=== PATIENT | female | born 1980 | race Caucasian/White ===

== ENCOUNTER 2016-08-20 12:41 | Day surgery (SDC) | payer OTHER ==
[~2016-08-20] VITALS: Ht 157.5 cm; Wt 52.6 kg
[2016-08-20] MEDS ORDERED: no meds (14:51)
[2016-08-20 14:59] VITALS: PULSE 78; Ht 157.5 cm; Wt 52.6 kg
[2016-08-20] MEDS ORDERED: MIDAZOLAM 1 MG/ML 2 ML INJ ONE ×2 (15:50)
[2016-08-20] MEDS ORDERED: FENTAnyl 50 MCG/ML VIAL ONE (15:50)
[2016-08-20] MEDS ORDERED: MEPERIDINE 50 MG INJ ONE (15:51)
--- NOTE | 2016-08-20 16:52 | GILP ---
DATE OF PROCEDURE: 08/20/2016 PROCEDURE: Esophagogastroduodenoscopy biopsy. PREOPERATIVE DIAGNOSIS: Gastroesophageal reflux symptoms with abdominal pain, abnormal CT report. POSTOPERATIVE DIAGNOSES: Distal esophagitis. DESCRIPTION OF PROCEDURE: The patient was put in left lateral decubitus after obtaining informed co nsent, the patient was sedated, monitored on oximetry, EKG, blood pressure. She was given 3 mg IV V ersed and 25 mcg of fentanyl. Very carefully advanced an Olympus video upper endoscope into the esophagus, stomach and duodenum. A tongue-like shaped mucosal change noted at the distal esophagus at the GE junction and one linear erosion noted. This was photographed and biopsy was done later. No hiatus hernia noted in the stom ach essentially normal, but random biopsy done. Fundus, body and antrum thoroughly examined. The p ylorus easily entered and duodenal bulb and first part and second part of the duodenum normal. Scop e was withdrawn after biopsies. The patient had no complication. Plan will be to await for biopsy report and follow up in 2 weeks. Dictated By: BOOKER HARDEN Conf#: [id number] DID#: [id number] CC: BOOKER HO M.D.;*EndCC*
--- NOTE | 2016-08-20 22:07 | GILP ---
DATE OF PROCEDURE: PREOPERATIVE DIAGNOSIS: Abnormal CT, abdominal pain, rule out any inflammatory bowel disease. PROCEDURE DONE: Colonoscopy and ileoscopy. POSTOPERATIVE DIAGNOSIS: Normal terminal ileum, normal colon. DESCRIPTION OF PROCEDURE: Patient was put in left lateral decubitus after obtaining informed consen t. After EGD, further sedation was done with 1 mg of Versed and 25 mcg of fentanyl, 50 mg of Demero l. Very carefully advanced a pediatric Olympus video colonoscope all the way to terminal ileum. On examination, tortuous colon, but normal colon. Terminal ileum is normal. Photography had been don e with NBI also. Scope was withdrawn slowly, examining entire colon from cecum to rectum, negative, normal. Retroflexion also done in the rectum, normal. Upon removal of scope, patient had no compl ication. Dear : I would recommend she go for capsule enteroscopy to rule out Crohn's disease of the small bowel raquel use of the abnormal CT report of the small bowel being thickened, and I will follow her up as outpat ient. Dictated By: BOOKER HARDEN Conf#: [id number] DID#: [id number]
== END 2016-08-20 16:39 | disposition home or self-care (01) ==
LOC: GIL 12:41
PROVIDERS: ATTEND Internal Medicine
DX: Z12.11 Encounter for screening for malignant neoplasm of colon (principal); K29.30 Chronic superficial gastritis without bleeding; K20.8 Other esophagitis
CPT/HCPCS: 43239; 45378; 88305; 88312; 88313; J2175; J2250; J3010; Z7610